=== PATIENT | male | born 1960 | race African-American/Black ===

== ENCOUNTER 2017-04-09 10:18 | Observation (INO) ==
[2017-04-09] MEDS ORDERED: hydrALAZINE 20 MG/1 ML VIAL IV STA ×2 (10:54→14:15)
[2017-04-09] MEDS ORDERED: hydrALAZINE 20 MG/1 ML VIAL ONE (11:26)
[2017-04-09 11:33] LABS: Basophils % 0.3 % (0.0-0.8); Eosinophils # 0.1 10*3/uL (0.0-0.87); Eosinophils % 1.6 % (0.00-10.9); Hematocrit 38.8 VOL% (42.0-52.0); Hemoglobin 13.5 GM/DL (14.0-18.0); Immature Granulocytes % 0.3 %; Immature Granulocytes Absolute 0.02 #; Lymphocytes # 1.3 10*3/uL (1.4-4.0); Mean Corpuscular HGB Conc 34.8 GM/DL (32-36); Mean Corpuscular Hemoglobin 32 PG (27-34); Mean Corpuscular Volume 92.8 FL (87-102); Mean Platelet Volume 10.1 FL (9.6-12.0); Monocytes # 0.4 10*3/uL (0.11-0.8); Monocytes % 6.2 % (1.7-12.7); Neutrophils # 4.5 10*3/uL (1.4-7.4); Neutrophils % 70.6 % (38.7-73.9); Platelet Count 161 T/CUMM (130-400); Red Blood Count 4.18 MC/CUMM (3.8-5.5); White Blood Count 6.3 T/CUMM (4-12)
[2017-04-09 11:41] LABS: PT Patient Result 10.7 SECS
[2017-04-09 12:02] LABS: Albumin 3.5 G/DL (3.4-5.0); Bilirubin,Total 0.4 MG/DL (0.2-1.0); Calcium 8.9 MG/DL (8.5-10.1); Magnesium 2.3 MG/DL (1.8-2.4); Osmolality,Calculated 282.5 MOS/KG (273-304); Potassium 3.5 MMOL/L (3.5-5.1); Total Protein 7.3 G/DL (6.4-8.3); Troponin I Only 0.337 NG/ML (0.00-0.045)
[2017-04-09] MEDS ORDERED: ENOXAPARIN 100 MG/ML SYRINGE SUBCUT STA (13:05)
[2017-04-09] MEDS ORDERED: ENOXAPARIN 80 MG/0.8 ML SYRINGE SUBCUT ONE (13:28)
[2017-04-09] MEDS ORDERED: ONDANSETRON 4 MG/2 ML VIAL ONE (14:57)
[2017-04-09] MEDS ORDERED: HYDROmorphone 2 MG/1 ML VIAL ONE (14:58)
[2017-04-09 15:27] LABS: Apearance,Urine CLEAR (Clear); Bilirubin,Urine Negative (Negative); Blood, Urine Negative (Negative); Glucose,Urine (UA) 50 mg/dL (Negative); Hyaline Casts,Urine 5 /LPF (0-3); Ketones,Urine Negative (Negative); Mucus,Urine Occasional /LPF (Occasional); Nitrite,Urine Negative (Negative); Protein,Urine Negative; Urine Color Yellow (Yellow); Urine Specific Gravity 1.016 (1.001-1.035); Urine Urobilinogen < 2.0 EU/DL (0.2-1.0); WBC,Urine 1 /HPF (0-6)
[2017-04-09 15:41] LABS: Barbiturates Screen,Urine Negative (Negative); Benzodiazepines Screen,Urine Negative (Negative); Cannabinoid Screen,Urine Negative (Negative); Opiate Screen,Urine Negative (Negative); Phencyclidine Screen,Urine Negative (Negative)
[2017-04-09] MEDS ORDERED: NICOTINE 21 MG/24 HR PATCH TRANSDERM PRN (19:18)
[2017-04-09] MEDS ORDERED: ONDANSETRON 4 MG/2 ML VIAL IV PRN (19:18)
[2017-04-09 20:09] LABS: Troponin I Only 0.363 NG/ML (0.00-0.045)
[2017-04-09] MEDS: ACETAMINOPHEN 325 MG TABLET PO PRN (20:19)
[2017-04-09] MEDS: amLODIPine 10 MG TABLET PO SCH (20:19)
[2017-04-09] MEDS: LISINOPRIL 10 MG TABLET PO SCH (20:20)
[2017-04-09] MEDS: ISOSORBIDE DINITRATE 10 MG TABLET PO SCH ×2 (20:25)
[2017-04-09 20:34] LABS: Troponin I Only 0.336 NG/ML (0.00-0.045)
[2017-04-10 04:55] LABS: Basophils % 0.3 % (0.0-0.8); Eosinophils # 0.2 10*3/uL (0.0-0.87); Eosinophils % 2.5 % (0.00-10.9); Hematocrit 37.3 VOL% (42.0-52.0); Hemoglobin 12.7 GM/DL (14.0-18.0); Immature Granulocytes % 0.3 %; Immature Granulocytes Absolute 0.02 #; Lymphocytes # 1.7 10*3/uL (1.4-4.0); Lymphocytes % 26.7 % (21.2-54.2); Mean Corpuscular Hemoglobin 32 PG (27-34); Mean Corpuscular Volume 92.8 FL (87-102); Mean Platelet Volume 10.2 FL (9.6-12.0); Monocytes # 0.5 10*3/uL (0.11-0.8); Monocytes % 7.8 % (1.7-12.7); Neutrophils # 4.1 10*3/uL (1.4-7.4); Neutrophils % 62.4 % (38.7-73.9); Platelet Count 160 T/CUMM (130-400); Red Blood Count 4.02 MC/CUMM (3.8-5.5); Red Cell Distribution Width 10.9 % (9.3-17.3); White Blood Count 6.5 T/CUMM (4-12)
[2017-04-10 05:55] LABS: Calcium 8.6 MG/DL (8.5-10.1); Osmolality,Calculated 284.3 MOS/KG (273-304); Potassium 3.9 MMOL/L (3.5-5.1); Risk Ratio 2.39; Thyroid Stimulating Hormone 0.713 uIU/ml (0.358-3.74); VLDL CHOLESTEROL 12.8 MG/DL
[2017-04-10] MEDS: ASPIRIN EC 325 MG TABLET PO SCH (08:58)
[2017-04-10] MEDS: amLODIPine 10 MG TABLET PO SCH (08:58)
[2017-04-10] MEDS: ISOSORBIDE DINITRATE 10 MG TABLET PO SCH ×2 (08:58→21:25)
[2017-04-10] MEDS: LISINOPRIL 10 MG TABLET PO SCH (08:58)
[2017-04-11] MEDS ORDERED: CHLORTHALIDONE 25 MG TABLET PO SCH (09:00)
[2017-04-11] MEDS ORDERED: LISINOPRIL 20 MG TABLET PO SCH (09:00)
[2017-04-11] MEDS: ACETAMINOPHEN 325 MG TABLET PO PRN (09:27)
[2017-04-11] MEDS: ASPIRIN EC 325 MG TABLET PO SCH (09:28)
[2017-04-11] MEDS: amLODIPine 10 MG TABLET PO SCH (09:28)
[2017-04-11] MEDS: ISOSORBIDE DINITRATE 10 MG TABLET PO SCH (09:28)
[2017-04-11 14:06] VITALS: BP 141/77
== END 2017-04-11 13:50 | disposition home or self-care (01) ==
LOC: N.ED 10:18 → N.EDINP 10:18 → N.TELES 19:00
PROVIDERS: ADMIT Hospitalist; ATTEND Hospitalist

== ENCOUNTER 2020-10-18 08:21 | Observation (INO) ==
[2020-10-18 09:28] LABS: Basophils % 0.6 % (0.0-0.8); Eosinophils # 0.2 10*3/uL (0.0-0.87); Eosinophils % 2.7 % (0.00-10.9); Hematocrit 44.4 VOL% (42.0-52.0); Hemoglobin 14.5 GM/DL (14.0-18.0); Immature Granulocytes % 0.3 %; Immature Granulocytes Absolute 0.02 #; Lymphocytes # 1.5 10*3/uL (1.4-4.0); Lymphocytes % 21.6 % (21.2-54.2); Mean Corpuscular HGB Conc 32.7 GM/DL (32-36); Mean Corpuscular Volume 91.9 FL (87-102); Mean Platelet Volume 9.2 FL (9.6-12.0); Monocytes % 6.2 % (1.7-12.7); Neutrophils % 68.6 % (38.7-73.9); Platelet Count 203 T/CUMM (130-400); Red Blood Count 4.83 MC/CUMM (3.8-5.5); White Blood Count 6.8 T/CUMM (4-12)
[2020-10-18 09:42] LABS: Alanine Aminotransferase 31 U/L (16-61); Albumin 3.7 G/DL (3.4-5.0); Alkaline Phosphatase 62 U/L (45-117); Aspartate Amino Transferase 38 U/L (0-37); Bilirubin,Total < 0.39 MG/DL (0.2-1.0); Blood Urea Nitrogen 22 MG/DL (7-18); Carbon Dioxide 23 MMOL/L (21-32); Estimated Glom Filtration Rate 84 ML/MIN; Glucose 113 MG/DL (74-106); Sodium 136 MMOL/L (136-145)
[2020-10-18] MEDS ORDERED: hydrALAZINE 20 MG/1 ML VIAL IV STA (09:42)
[2020-10-18] MEDS ORDERED: ASPIRIN CHEW 81 MG TABLET PO STA (09:47)
[2020-10-18] MEDS ORDERED: NITROGLYCERIN SL 0.4 MG TABLET SL STA (09:47)
[2020-10-18] MEDS ORDERED: HydrOXYzine PAMOATE 25 MG CAPSULE PO PRN (12:24)
[2020-10-18] MEDS ORDERED: NITROGLYCERIN SL 0.4 MG TABLET SL PRN (12:24)
[2020-10-18] MEDS: cloNIDine 0.1 MG TABLET PO SCH (12:48)
[2020-10-18] MEDS: PANTOPRAZOLE 40 MG TABLET PO SCH ×2 (12:48→21:14)
[2020-10-18] MEDS ORDERED: amLODIPine 5 MG TABLET PO STA (13:20)
[2020-10-18] MEDS: carvediloL 25 MG TABLET PO SCH (21:14)
[2020-10-19] MEDS: AMITRIPTYLINE 25 MG TABLET PO PRN ×2 (01:25→21:29)
[2020-10-19 09:07] LABS: Barbiturates Screen,Urine Negative (Negative); Benzodiazepines Screen,Urine Negative (Negative); Cannabinoid Screen,Urine Negative (Negative); Opiate Screen,Urine Negative (Negative); Phencyclidine Screen,Urine Negative (Negative)
[2020-10-19] MEDS: carvediloL 25 MG TABLET PO SCH ×2 (09:24→21:28)
[2020-10-19] MEDS: buPROPion SR 100 MG TABLET PO SCH (09:24)
[2020-10-19] MEDS: cloNIDine 0.1 MG TABLET PO SCH (09:24)
[2020-10-19] MEDS: ASPIRIN EC 81 MG TABLET PO SCH (09:25)
[2020-10-19] MEDS: SPIRONOLACTONE 25 MG TABLET PO SCH (09:25)
[2020-10-19] MEDS: amLODIPine 10 MG TABLET PO SCH (09:25)
[2020-10-19] MEDS: PANTOPRAZOLE 40 MG TABLET PO SCH ×2 (09:25→21:28)
[2020-10-19] MEDS ORDERED: ATORVASTATIN 80 MG TABLET PO SCH (21:00)
[2020-10-20 04:44] LABS: Basophils % 0.5 % (0.0-0.8); Eosinophils # 0.2 10*3/uL (0.0-0.87); Eosinophils % 3.4 % (0.00-10.9); Hematocrit 39.9 VOL% (42.0-52.0); Hemoglobin 12.8 GM/DL (14.0-18.0); Immature Granulocytes % 0.2 %; Immature Granulocytes Absolute 0.01 #; Lymphocytes % 33.6 % (21.2-54.2); Mean Corpuscular HGB Conc 32.1 GM/DL (32-36); Mean Corpuscular Volume 93.7 FL (87-102); Mean Platelet Volume 9.6 FL (9.6-12.0); Monocytes % 9.8 % (1.7-12.7); Neutrophils % 52.5 % (38.7-73.9); Platelet Count 180 T/CUMM (130-400); Red Blood Count 4.26 MC/CUMM (3.8-5.5); Red Cell Distribution Width 11.9 % (9.3-17.3); White Blood Count 5.9 T/CUMM (4-12)
[2020-10-20 05:00] LABS: Calcium 8.4 MG/DL (8.5-10.1); Osmolality,Calculated 278.5 MOS/KG (273-304); Potassium 3.8 MMOL/L (3.5-5.1)
[2020-10-20 07:58] VITALS: BP 171/95
[2020-10-20] MEDS: PANTOPRAZOLE 40 MG TABLET PO SCH (09:39)
[2020-10-20] MEDS: SPIRONOLACTONE 25 MG TABLET PO SCH (09:39)
[2020-10-20] MEDS: buPROPion SR 100 MG TABLET PO SCH (09:40)
[2020-10-20] MEDS: amLODIPine 10 MG TABLET PO SCH (09:40)
[2020-10-20] MEDS: carvediloL 25 MG TABLET PO SCH (09:40)
[2020-10-20] MEDS: cloNIDine 0.1 MG TABLET PO SCH (09:40)
[2020-10-20] MEDS: ASPIRIN EC 81 MG TABLET PO SCH (09:40)
== END 2020-10-20 11:23 | disposition home health service (06) ==
LOC: N.ED 08:21 → N.EDINP 08:21 → N.4E 15:58
PROVIDERS: ADMIT Family Medicine; ATTEND Family Medicine

== ENCOUNTER 2022-04-10 08:46 | Observation (INO) ==
[2022-04-10] MEDS ORDERED: cloNIDine 0.1 MG TABLET PO STA ×2 (09:24→09:26)
[2022-04-10] MEDS ORDERED: ACETAMINOPHEN 325 MG TABLET PO ONE (09:24)
[2022-04-10] MEDS ORDERED: hydrALAZINE 20 MG/1 ML VIAL IV STA ×2 (09:24→10:21)
[2022-04-10 09:35] LABS: Basophils % 0.5 % (0.0-0.8); Eosinophils # 0.1 10*3/uL (0.0-0.87); Eosinophils % 1.4 % (0.00-10.9); Hemoglobin 14.2 GM/DL (14.0-18.0); Immature Granulocytes % 0.3 %; Immature Granulocytes Absolute 0.02 #; Lymphocytes # 0.9 10*3/uL (1.4-4.0); Lymphocytes % 14.2 % (21.2-54.2); Mean Corpuscular HGB Conc 32.3 GM/DL (32-36); Mean Platelet Volume 9.7 FL (9.6-12.0); Monocytes # 0.5 10*3/uL (0.11-0.8); Monocytes % 7.9 % (1.7-12.7); Neutrophils % 75.7 % (38.7-73.9); Platelet Count 171 T/CUMM (130-400); Red Blood Count 4.68 MC/CUMM (3.8-5.5); Red Cell Distribution Width 11.7 % (9.3-17.3); White Blood Count 6.5 T/CUMM (4-12)
[2022-04-10 10:00] LABS: Albumin 3.8 G/DL (3.4-5.0); Bilirubin,Total 0.5 MG/DL (0.20-1.00); Calcium 8.9 MG/DL (8.5-10.1); Osmolality,Calculated 271.1 MOS/KG (273-304); Potassium 3.9 MMOL/L (3.5-5.1); Total Protein 8.4 G/DL (6.4-8.2)
[2022-04-10] MEDS ORDERED: ASPIRIN 325 MG TABLET PO STA (11:49)
[2022-04-10] MEDS ORDERED: hydrALAZINE 20 MG/1 ML VIAL IV PRN (12:55)
[2022-04-10] MEDS ORDERED: ONDANSETRON 4 MG/2 ML VIAL IV PRN (12:55)
[2022-04-10] MEDS ORDERED: ACETAMINOPHEN 325 MG TABLET PO PRN (12:55)
[2022-04-10] MEDS ORDERED: MORPHINE 2 MG/1 ML SYRINGE IV PRN (12:55)
[2022-04-10] MEDS ORDERED: NITROGLYCERIN SL 0.4 MG TABLET SL PRN (12:59)
[2022-04-10] MEDS ORDERED: HydrOXYzine PAMOATE 25 MG CAPSULE PO PRN (12:59)
[2022-04-10] MEDS ORDERED: AMITRIPTYLINE 25 MG TABLET PO PRN (12:59)
[2022-04-10] MEDS ORDERED: ENOXAPARIN 40 MG/0.4 ML SYRINGE SUBCUT SCH (13:00)
[2022-04-10 13:11] LABS: Barbiturates Screen,Urine Negative (Negative); Benzodiazepines Screen,Urine Negative (Negative); Cannabinoid Screen,Urine Negative (Negative); Opiate Screen,Urine Negative (Negative); Phencyclidine Screen,Urine Negative (Negative)
[2022-04-10 13:24] LABS: RBC,Urine <1 /HPF (0-4); Sperm,Urine Occasional /HPF (Negative)
[2022-04-10 13:25] LABS: Bilirubin,Urine Negative (Negative); Blood, Urine Negative (Negative); Glucose,Urine (UA) Negative (Negative); Ketones,Urine Negative (Negative); Nitrite,Urine Negative (Negative); Protein,Urine Negative (Negative); Urine Appearance Slightly Hazy (Clear); Urine Color Yellow (Yellow); Urine Specific Gravity 1.015 (1.001-1.035); Urine Urobilinogen 0.2 eU/dL (<2.0)
[2022-04-10] MEDS: DAPAGLIFLOZIN 10 MG TABLET PO SCH (18:14)
[2022-04-10] MEDS: NEBIVOLOL 10 MG TABLET PO SCH (18:15)
[2022-04-11 05:00] LABS: Basophils % 0.2 % (0.0-0.8); Eosinophils # 0.2 10*3/uL (0.0-0.87); Eosinophils % 3.3 % (0.00-10.9); Hematocrit 42.2 VOL% (42.0-52.0); Immature Granulocytes % 0.2 %; Immature Granulocytes Absolute 0.01 #; Lymphocytes # 1.2 10*3/uL (1.4-4.0); Lymphocytes % 22.1 % (21.2-54.2); Mean Corpuscular HGB Conc 33.2 GM/DL (32-36); Mean Platelet Volume 9.6 FL (9.6-12.0); Monocytes # 0.5 10*3/uL (0.11-0.8); Monocytes % 8.8 % (1.7-12.7); Neutrophils % 65.4 % (38.7-73.9); Platelet Count 159 T/CUMM (130-400); Red Blood Count 4.54 MC/CUMM (3.8-5.5); Red Cell Distribution Width 11.8 % (9.3-17.3); White Blood Count 5.2 T/CUMM (4-12)
[2022-04-11 05:28] LABS: Calcium 8.8 MG/DL (8.5-10.1); Osmolality,Calculated 276.8 MOS/KG (273-304); Potassium 3.8 MMOL/L (3.5-5.1); Risk Ratio 3.02; Thyroid Stimulating Hormone 0.673 uIU/ml (0.358-3.74)
[2022-04-11] MEDS: NEBIVOLOL 10 MG TABLET PO SCH (08:07)
[2022-04-11] MEDS: DAPAGLIFLOZIN 10 MG TABLET PO SCH (08:07)
[2022-04-11 08:09] VITALS: BP 142/86
[2022-04-11] MEDS ORDERED: FLUTICASONE 50 MCG NASAL SPRAY 16 GM BOTTLE BOTH NARES SCH (09:00)
[2022-04-11] MEDS ORDERED: PANTOPRAZOLE 40 MG TABLET PO SCH (09:00)
[2022-04-11] MEDS ORDERED: SPIRONOLACTONE 50 MG TABLET PO SCH (09:00)
[2022-04-11] MEDS ORDERED: TERAZOSIN 5 MG CAPSULE PO SCH (09:00)
[2022-04-11] MEDS ORDERED: ASPIRIN EC 81 MG TABLET PO SCH (09:00)
[2022-04-11] MEDS ORDERED: amLODIPine 10 MG TABLET PO SCH (09:00)
[2022-04-11] MEDS ORDERED: buPROPion SR 100 MG TABLET PO SCH (09:00)
[2022-04-11] MEDS ORDERED: ATORVASTATIN 80 MG TABLET PO SCH (09:00)
== END 2022-04-11 11:21 | disposition home or self-care (01) ==
LOC: N.ED 08:46 → N.EDINP 08:46 → SUATTDRO 12:55 → N.2W 17:00
PROVIDERS: ADMIT Internal Medicine; ATTEND Internal Medicine